=== PATIENT | female | born 1980 | race Two or more races ===

== ENCOUNTER 2016-12-17 20:34 | Emergency (ER) | payer OTHER ==
[~2016-12-17] VITALS: Ht 170.2 cm; Wt 92.4 kg
[~2016-12-17 20:34] MED LIST: ALPR-475 PO; HYDR-3307 PO; INSU100I9 SQ-INSULIN; METF500T4 PO
[2016-12-17 20:37] VITALS: BP 145/93
[2016-12-17] MEDS ORDERED: SODIUM CHLORIDE 0.9% 1,000ML IVBOLUS ONE (22:00)
[2016-12-17 22:16] LABS: PH, VENOUS 7.393 pH (7.320-7.420)
[2016-12-17 22:29] LABS: ASPARTATE AMINO TRANSFERASE 16 U/L (15-37); BLOOD UREA NITROGEN 14 mg/dL (7-18)
[2016-12-17] MEDS ORDERED: KETOROLAC 30 MG/1 ML IVPush ONE (23:00)
[2016-12-17] MEDS ORDERED: KETOROLAC 30 MG/1 ML ONE (23:06)
== END 2016-12-17 23:51 | disposition home or self-care (01) ==
LOC: ED 23:15
DX: E11.65 Type 2 diabetes mellitus with hyperglycemia (principal); E86.0 Dehydration; Z79.4 Long term (current) use of insulin; M06.9 Rheumatoid arthritis, unspecified; Z87.891 Personal history of nicotine dependence
CPT/HCPCS: 36415; 80053; 81003; 82010; 82803; 82962; 83690; 85025; 96361; 96374; 99285; J1885; J7030

== ENCOUNTER 2018-06-06 09:20 | Emergency (ER) | payer OTHER ==
[~2018-06-06] VITALS: Ht 160 cm; Wt 92.1 kg
[~2018-06-06 09:20] MED LIST changes: +METF500T17 PO; -METF500T4 PO
[2018-06-06] MEDS ORDERED: HYDROcodone/APAP 10/325 MG TABLET PO ONE (10:00)
[2018-06-06 10:02] LABS: BASOPHILS % (AUTO) 1 % (0-1); EOSINOPHILS # (AUTO) 0.21 x10^3/uL (0-0.4); EOSINOPHILS % (AUTO) 3 % (1-7); LYMPHOCYTES # (AUTO) 2.83 x10^3/uL (1-3.4); LYMPHOCYTES % (AUTO) 38 % (22-44); MD NO; MEAN CORPUSCULAR HEMOGLOBIN 23.8 pg (27.0-34.8); MEAN CORPUSCULAR HGB CONC 31.6 g/dL (32.4-35.8); MEAN CORPUSCULAR VOLUME 75.3 fL (80-100); MEAN PLATELET VOLUME 10.1 fL (7.4-10.4); MONOCYTES # (AUTO) 0.63 x10^3/uL (0.2-0.8); MONOCYTES % (AUTO) 8 % (2-9); NEUTROPHILS # (AUTO) 3.75 x10^3/uL (1.8-6.8); NEUTROPHILS % (AUTO) 50 % (42-75); PLATELET COUNT 351 x10^3/uL (130-400); RED BLOOD COUNT 4.07 x10^6/uL (3.82-5.3); RED CELL DISTRIBUTION WIDTH 18.2 % (9.6-15.2)
[2018-06-06 10:14] LABS: ALBUMIN 3.5 g/dL (3.4-5.0); ANION GAP 7 mmol/L (5-15); CALCIUM 7.7 mg/dL (8.5-10.1); CHLORIDE 112 mmol/L (98-107)
[2018-06-06 10:17] LABS: ALANINE AMINOTRANSFERASE 25 U/L (12-78); ALKALINE PHOSPHATASE 74 U/L (45-117); BILIRUBIN,TOTAL 0.3 mg/dL (0.2-1.0); CREATININE 0.71 mg/dL (0.55-1.02); TOTAL PROTEIN 6.8 g/dL (6.4-8.2)
[2018-06-06] MEDS ORDERED: HYDROcodone/APAP 5/325 TABLET ONE (10:40)
[2018-06-06] MEDS ORDERED: HYDROcodone/APAP 10/325 MG TABLET ONE (10:45)
[2018-06-06 10:47] VITALS: BP 144/80
[2018-06-06 10:50] LABS: MICROSCOPIC NOT IND
[2018-06-06 10:54] LABS: CULTURE INDICATED? NO
== END 2018-06-06 12:13 | disposition home or self-care (01) ==
LOC: ED 11:22
DX: J00 Acute nasopharyngitis [common cold] (principal); B34.9 Viral infection, unspecified; D50.0 Iron deficiency anemia secondary to blood loss (chronic); M06.9 Rheumatoid arthritis, unspecified; E11.65 Type 2 diabetes mellitus with hyperglycemia; F17.200 Nicotine dependence, unspecified, uncomplicated
CPT/HCPCS: 36415; 80053; 81003; 85025; 99283